=== PATIENT | female | born 1990 | race Caucasian/White ===

== ENCOUNTER 2017-07-19 21:09 | Emergency (ER) | payer OTHER ==
[~2017-07-19] VITALS: Ht 160 cm; Wt 77.1 kg
[~2017-07-19 21:09] MED LIST: CLEOCIN HCL150 MG PO; IBUPROFEN 800800 M1 PO; PENICILLIN V P500 MG PO; ULTRAM 50MG TAB50 MG PO
[2017-07-19] MEDS ORDERED: IBUPROFEN 600600 M1 PO (21:58)
[2017-07-19 23:00] VITALS: BP 127/83
== END 2017-07-20 00:18 | disposition home or self-care (01) ==
LOC: ER 21:09
DX: M79.672 Pain in left foot (principal)

== ENCOUNTER 2017-08-17 19:35 | Emergency (ER) | payer OTHER ==
[~2017-08-17] VITALS: Ht 160 cm; Wt 74.8 kg
[~2017-08-17 19:35] MED LIST changes: +IBUPROFEN 600600 M1 PO
[2017-08-17 19:36] VITALS: BP 160/94
[2017-08-17] MEDS ORDERED: IBUPROFEN 600600 M1 PO (20:16)
== END 2017-08-17 20:27 | disposition home or self-care (01) ==
LOC: ER 19:35
DX: M25.511 Pain in right shoulder (principal)

== ENCOUNTER 2018-08-10 22:21 | Emergency (ER) | payer OTHER ==
[~2018-08-10] VITALS: Ht 160 cm; Wt 77.1 kg
--- NOTE | ~2018-08-10 | EKG ---
[address] [address] ELECTROCARDIOGRAM REPORT Name: CURLY EVANS Room #: DEP [facility]#: [id number] Admission: 08/10/18 Attend Phys: Discharge: 08/11/18 Date of : [birth year] Report #: [id number] THIS REPORT FOR: //name// [facility] ED Test Date: 2018-08-10 Test Time: 23:09:09 Pat Name: CURLY EVANS Department: Room: Gender: F [employer] Range Feeder: doris : 1990 Requested By: Carlos Ramos Order Number: [id number] MD: Michael Bah Measurements Intervals [place] Rate: 97 P: 32 [place]: 128 QRS: 38 QRSD: 89 T: 1 QT: 349 QTc: 444 Interpretive Statements Sinus rhythm Probable left atrial enlargement Compared to ECG 11/20/2010 18:39:36 Sinus tachycardia no longer present Electronically Signed On 08-11-2018 16:22:29 CDT by Michael Bah [email or web address] <ELECTRONICALLY SIGNED> By: Michael Bah MD 08/11/18 1622 D: 09/2308 08 Michael Bah MD /MIRIAN
[~2018-08-10 22:21] MED LIST changes: +NAPROSYN500 MG PO; +NORFLEX100 MG PO
[2018-08-10 23:11] LABS: HEMATOCRIT 37.5 % (37.0-47.0); HEMOGLOBIN 12.5 gm/dL (12.0-15.0); MCH 27.6 pg (26.0-34.0); MCHC 33.4 g/dL (28.0-37.0); MCV 82.5 fL (80.0-100.0); PLATELET COUNT 310 thou/uL (150-400); RBC 4.55 mil/uL (4.20-5.00); RDW 13.4 % (10.5-14.5); WBC 23.8 thou/uL (4.0-11.0)
[2018-08-10 23:12] LABS: ANION GAP 6 mmol/L (7-16); BUN 9 mg/dL (7-18); CALCIUM 9.3 mg/dL (8.5-10.1); CHLORIDE 102 mmol/L (98-107); CO2 27 mmol/L (21-32); CREATININE 0.9 mg/dL (0.6-1.0); GLUCOSE 123 mg/dL (74-106); POTASSIUM 3.6 mmol/L (3.5-5.1); SODIUM 135 mmol/L (136-145)
[2018-08-10 23:21] LABS: LIPASE 193 U/L (73-393); SGOT 23 U/L (15-37); SGPT 38 U/L (30-65); TOTAL BILIRUBIN 0.4 mg/dL (<0.1-1.0); TOTAL PROTEIN 7.8 g/dL (6.4-8.2); TROPONIN-I <0.06 ng/mL (<0.06)
[2018-08-10 23:42] LABS: URINE BILIRUBIN NEGATIVE (Negative); URINE BLOOD 3+ (Negative); URINE CLARITY CLEAR; URINE COLOR YELLOW; URINE GLUCOSE-RANDOM* NEGATIVE (Negative); URINE KETONES NEGATIVE (Negative); URINE PROTEIN (DIPSTICK) 2+ (Negative); URINE SPECIFIC GRAVITY 1.015 (1.005-1.035); URINE UROBILINOGEN 0.2 E.U./dl (0.2-1.0)
[2018-08-10 23:45] LABS: URINE LEUKOCYTES-REFLEX 3+ (Negative); URINE NITRITE-REFLEX POSITIVE (Negative)
[2018-08-10 23:54] LABS: ABSOLUTE NEUTROPHILS 20.2 thou/uL (1.4-8.2); ATYPICAL LYMPHS 1 %
[2018-08-10 23:57] LABS: CASTS None Seen /LPF (None Seen); SQUAMOUS None Seen /LPF (0-3); URINE WBC-REFLEX >25 Many /HPF (0-5)
[2018-08-10 23:58] LABS: URINE RBC 0-2 Rare /HPF (0-2)
[2018-08-10 23:59] LABS: BACTERIA-REFLEX 1-9 Few /HPF (None Seen); CRYSTALS None Seen /LPF (None Seen); MUCUS 0-3 Light strn/LPF (None Seen)
[2018-08-11 00:13] LABS: APTT 31.9 Seconds (24.5-32.8)
[2018-08-11 01:04] VITALS: BP 132/75
== END 2018-08-11 01:08 ==
LOC: ER 22:21
PROVIDERS: Emergency Medicine
DX: O86.12 Endometritis following delivery (principal); N39.0 Urinary tract infection, site not specified; R00.0 Tachycardia, unspecified; Z87.59 Personal history of other complications of pregnancy, childbirth and the puerperium

== ENCOUNTER 2018-10-16 20:51 | Emergency (ER) | payer OTHER ==
[~2018-10-16] VITALS: Ht 160 cm; Wt 68.0 kg
--- NOTE | ~2018-10-16 | EKG ---
[address] [place] [address] ELECTROCARDIOGRAM REPORT Name: CURLY EVANS Room #: DEP [facility]#: [id number] Admission: 10/16/18 Attend Phys: Discharge: 10/17/18 Date of : [birth year] Report #: [id number] THIS REPORT FOR: //name// [facility] ED Test Date: 2018-10-16 Test Time: 21:42:34 Pat Name: CURLY EVANS Department: Room: Gender: F Files Supervisor: THIERRY : 1990 Requested By: Carlos Ramos Order Number: [id number] MD: Murphy Nazario Measurements Intervals [place] Rate: 89 P: 31 MT: 124 QRS: 37 QRSD: 91 T: 1 QT: 388 QTc: 473 Interpretive Statements Sinus rhythm Borderline prolonged QT interval Compared to ECG 08/10/2018 23:09:09 No significant changes Electronically Signed On 10-17-2018 10:29:49 [employer] by Murphy Nazario [email or web address] <ELECTRONICALLY SIGNED> By: Murphy Nazario MD 10/17/18 1029 [id number] Murphy Nazario MD /EPI
[2018-10-16] MEDS ORDERED: SPRINTEC1 EACH PO (21:06)
[2018-10-16 22:28] LABS: URINE BILIRUBIN NEGATIVE (Negative); URINE BLOOD NEGATIVE (Negative); URINE CLARITY CLEAR; URINE COLOR YELLOW; URINE GLUCOSE-RANDOM* NEGATIVE (Negative); URINE KETONES NEGATIVE (Negative); URINE NITRITE-REFLEX NEGATIVE (Negative); URINE PROTEIN (DIPSTICK) NEGATIVE (Negative); URINE UROBILINOGEN 0.2 E.U./dl (0.2-1.0)
[2018-10-16 22:33] LABS: URINE LEUKOCYTES-REFLEX TRACE (Negative)
[2018-10-16 23:42] LABS: ABSOLUTE NEUTROPHILS 8.5 thou/uL (1.4-8.2); BASOPHILS 1.2 % (0.0-2.0); EOSINOPHILS 0.9 % (0.0-3.0); HEMOGLOBIN 13.2 gm/dL (12.0-15.0); LYMPHOCYTES 25.8 % (24.0-44.0); MCH 26.2 pg (26.0-34.0); MCV 79.3 fL (80.0-100.0); MONOCYTES 5.6 % (1.0-8.0); PLATELET COUNT 249 thou/uL (150-400); POLYS 66.5 % (36.0-66.0); RBC 5.05 mil/uL (4.20-5.00); RDW 15.5 % (10.5-14.5); WBC 12.8 thou/uL (4.0-11.0)
[2018-10-16 23:53] LABS: ANION GAP 12 mmol/L (7-16); BUN 11 mg/dL (7-18); CALCIUM 9.4 mg/dL (8.5-10.1); CHLORIDE 103 mmol/L (98-107); CO2 24 mmol/L (21-32); CREATININE 0.7 mg/dL (0.6-1.0); GLUCOSE 132 mg/dL (74-106); POTASSIUM 4.2 mmol/L (3.5-5.1); SODIUM 139 mmol/L (136-145)
[2018-10-17 00:01] LABS: ALBUMIN 3.5 g/dL (3.4-5.0); SGOT 32 U/L (15-37); SGPT 33 U/L (30-65); TOTAL BILIRUBIN 0.3 mg/dL (<0.1-1.0); TROPONIN-I <0.06 ng/mL (<0.06)
[2018-10-17] MEDS ORDERED: NAPROSYN500 MG PO (00:24)
[2018-10-17] MEDS ORDERED: VENTOLIN HFA 1818 GM INH (00:24)
[2018-10-17 00:52] VITALS: BP 150/89
== END 2018-10-17 00:54 | disposition home or self-care (01) ==
LOC: ER 20:51
PROVIDERS: Emergency Medicine
DX: R06.00 Dyspnea, unspecified (principal); R07.89 Other chest pain; R00.2 Palpitations; Z79.899 Other long term (current) drug therapy

== ENCOUNTER → 2019-03-30 | Outpatient (CLI) | payer BC, OTHER ==
[~2019-03-30] MED LIST changes: +SPRINTEC1 EACH PO; +VENTOLIN HFA 1818 GM INH
== END ==
LOC: ULTRA 09:00
DX: K76.0 Fatty (change of) liver, not elsewhere classified (principal); R16.2 Hepatomegaly with splenomegaly, not elsewhere classified

== ENCOUNTER 2020-09-29 19:23 | Inpatient (IN) | payer OTHER ==
[~2020-09-29] VITALS: Ht 162.6 cm; Wt 72.6 kg
[2020-09-29 20:02] VITALS: BP 150/89
[2020-09-29 21:19] LABS: ABSOLUTE NEUTROPHILS 8.2 thou/uL (1.4-8.2); BASOPHILS 1.1 % (0.0-2.0); EOSINOPHILS 1.2 % (0.0-3.0); HEMATOCRIT 44.3 % (37.0-47.0); HEMOGLOBIN 14.7 gm/dL (12.0-15.0); LYMPHOCYTES 23.4 % (24.0-44.0); MCHC 33.3 g/dL (28.0-37.0); MCV 84.1 fL (80.0-100.0); MONOCYTES 4.4 % (1.0-8.0); PLATELET COUNT 288 thou/uL (150-400); POLYS 69.9 % (36.0-66.0); RBC 5.26 mil/uL (4.20-5.00); RDW 13.3 % (10.5-14.5); WBC 11.8 thou/uL (4.0-11.0)
[2020-09-29 21:24] LABS: CALCIUM 9.5 mg/dL (8.5-10.1); CREATININE 0.8 mg/dL (0.6-1.0)
[2020-09-29 21:26] LABS: POTASSIUM 3.7 mmol/L (3.5-5.1)
[2020-09-29 21:30] LABS: ALBUMIN 4.2 g/dL (3.4-5.0); TOTAL BILIRUBIN 0.7 mg/dL (0.2-1.0); TOTAL PROTEIN 8.6 g/dL (6.4-8.2)
[2020-09-29 22:25] LABS: URINE BILIRUBIN NEGATIVE (Negative); URINE BLOOD NEGATIVE (Negative); URINE CLARITY SL CLOUDY; URINE COLOR YELLOW; URINE GLUCOSE-RANDOM* NEGATIVE (Negative); URINE KETONES NEGATIVE (Negative); URINE LEUKOCYTES-REFLEX NEGATIVE (Negative); URINE NITRITE-REFLEX NEGATIVE (Negative); URINE PROTEIN (DIPSTICK) NEGATIVE (Negative); URINE SPECIFIC GRAVITY >= 1.030 (1.005-1.035); URINE UROBILINOGEN 0.2 E.U./dl (0.2-1.0)
[2020-09-30] VITALS (7 sets, daily range): BP systolic 119–156; BP diastolic 66–102
--- NOTE | 2020-09-30 03:58 | NUR ---
PATIENT ARRIVED FROM THE ED IN WHEELCHAIR WITH RN AT 0226. ALERT AND ORIENTED X4. PLEASANT AND COOPERATIVE. IVF INFUSING PER ORDER. NO C/O NAUSEA. MEDICATED FOR PAIN IN ER. NO EMESIS AT THIS TIME. UP FROM CHAIR TO BED W/O ASSIST. STATES THAT HER MOTHER IS A FLAT LOCKER HERE AT [facility]. TOLERATING DISCOMFORT, RESTING QUIETLY. WILL MONITOR. ORIENTED TO ROOM.
--- NOTE | 2020-09-30 12:02 | NUR ---
PT CARE ASSUMED AT 0700. A&Ox4. PT RESTING MOST OF THE MORNING WITH NO COMPLAINTS OF PAIN,NAUSEA OR VOMITTING. COVID SWABBED. SPOKE WITH DR. SOLIS. PT WILL HAVE SURGERY THIS AFTERNOON FOR AN APPENDECTOMY. PT MOTHER CALLED AND WAS GIVEN AN UPDATE ON PT. PT UP AT PAVITHRA INDEPENDENTLY IN ROOM. NPO SINCE MIDNIGHT. PT HAS A HISTORY OF ANXIETY AND BIPOLAR WHICH IS NOT IN PT HISTORY. PT HAS A FAMILY HISTORY OF MINOR CHILD BEING ABDUCTED ONE YEAR AGO AND SUFFERS ANXIETY DUE TO THIS. NOT ALLOWED TO VISIT (CO-ABDUCTOR). WILL CONTINUE TO MONITOR.
--- NOTE | 2020-10-01 01:49 | NUR ---
PT AOX4. PT REPORTS 7/10 ABDOMINAL PAIN NEAR RUQ LAPRASCOPIC SITE. PT REPORTS SOB WITH EXERTION AND TALKING WHILE ON ROOM AIR. PT EXPRESSES PREFERENCE TO WEAR 0XYGEN AT NIGHT ONLY. PT RECEIVING PRN PO NORCO Q4HR WITH PRN IV MORPHINE Q4HR AVAILABLE. PT TOLERATINNG PO INTAKE OF FLUIDS AND REGULAR DIET WITHOUT ISSUE. PT REPORTS NAUSEA X1 WITHOUT EMESIS. PT RECEIVING PRN IV ZOFRAN Q4HR. PT AMBULATING WITH STANDBY ASSIST TO BATHROOM. FREQUENT REPOSITIONING ENCOURAGED, PT NOTED TO SHIFT INDEPENDENTLY WHILE IN BED. PT ENCOURAGED TO NOTIFY STAFF FOR ALL NEEDS, CALL LIGHT WITHIN REACH, BED ALARM ON, BED IN LOWEST POSITION, FREQUENT MONITORING WILL CONTINUE.
[2020-10-01 07:30] VITALS: BP 116/62
--- NOTE | 2020-10-01 07:40 | NUR ---
ASSUMED CARE OF PATIENT WHO IS SLEEPING THIS AM WILL FOLLOW PLAN OF CARE.
--- NOTE | 2020-10-01 10:35 | NUR ---
PATIENT GIVEN FLU VACCINE LEFT DELTOID.
--- NOTE | 2020-10-01 12:29 | O ---
[facility] [place] [address] OPERATIVE REPORT Name: CURLY EVANS Room #: 439-P ADM IN M.R.#: [id number] Admission: 09/30/20 Attend Phys: Dale Cee MD Discharge: Date of : [birth year] Report #: [id number] THIS REPORT FOR: cc: Lloyd Duarte,Roger Smith MD ~ CC: Dale Duarte DATE OF SERVICE: 09/30/2020 PREOPERATIVE DIAGNOSIS: Acute appendicitis. POSTOPERATIVE DIAGNOSIS: Acute appendicitis. OPERATION: Laparoscopic appendectomy. SURGEON: Roger Elder MD ANESTHESIA: General. ESTIMATED BLOOD LOSS: Minimal. SPECIMEN: Appendix. DESCRIPTION OF PROCEDURE: After informed consent was obtained, the patient was brought to the operating room and placed supine. SCDs were placed and working, preoperative antibiotics were administered, general anesthesia was induced. The abdomen was prepped and draped in the usual sterile fashion. A 10 mm incision was made below the umbilicus. Fascia was incised and a trocar was placed. Pneumoperitoneum was established. A left lower quadrant and right upper quadrant 5 mm port was placed. The appendix was visualized in the right lower quadrant. It was grasped and retracted anteriorly. A window was made in the mesoappendix. The mesoappendix was ligated with a NICOL escobedo load stapler. The base of the appendix was stapled off with a NICOL blue load stapler. It was placed into an Endopouch and removed. Fascia was then closed with a [id number] 0 Vicryl. Skin was closed with 4-0 Monocryl. Incisions were sealed with Dermabond. COMPLICATIONS: None. DISPOSITION: The patient was taken to recovery in satisfactory condition. <ELECTRONICALLY SIGNED> By: Roger Elder MD 10/01/20 1229 [id number] Roger Elder MD /nt
[2020-10-01 16:10] VITALS: BP 145/83
[2020-10-01] MEDS ORDERED: NORCO 10-325 T1 EACH PO (16:37)
[2020-10-01 17:16] VITALS: BP 145/83
--- NOTE | 2020-10-01 17:42 | NUR ---
DISCHARGE ORDERS REVIEWED SIGNED AND COPY IN CHART. IV ACSESS DCD. 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
== END 2020-10-01 17:57 | disposition home or self-care (01) | DRG 343 ==
LOC: ER 19:23 → 4S 09-30 01:24 → EROBS 09-30 01:24 → 4S 09-30 02:33
PROVIDERS: Student in an Organized Health Care Education/Training Program; ADMIT Surgery; ATTEND Surgery
PROC: 0DTJ4ZZ Resection of Appendix, Percutaneous Endoscopic Approach (ICD-10-PCS; principal; 2020-09-30)
DX: K35.80 Unspecified acute appendicitis (principal); J45.909 Unspecified asthma, uncomplicated; Z20.828 Contact with and (suspected) exposure to other viral communicable diseases; Z79.899 Other long term (current) drug therapy; Z23 Encounter for immunization
CPT/HCPCS: 10195; 50101; 50411; 50555; 50739; 50740; 52265; 52266; 53307; 53312; 56525; 56526; 62110; 62900; 70005